=== PATIENT | female | born 1950 | race Caucasian/White ===

== ENCOUNTER → 2016-06-14 | Outpatient (CLI) | payer MEDICARE ==
[~2016-06-14] MED LIST: ACTIGALL 300MG300 MG PO; ANTIVERT 25MG25 MG PO; CALCIUM CITRAT200 MG PO; CODEINE30 MG PO; EVISTA 60MG60 MG/TAB PO; HCTZ 25MG25 MG PO; METAPROLOL; METOPROLOL25 MG PO; SYNTHROID0.1 MG/TAB PO; URSODIOL300 MG PO; VALIUM 2MG T2 MG/TAB PO; VITAMIN B11000 MCG/M IM; VITAMIN D5000 IU PO; ZOFRAN 4MG T4 MG/TAB PO
[2016-06-14 14:18] LABS: HEMOGLOBIN 13.2 g/dl (12.5-16.0)
[2016-06-14 14:27] LABS: HEMATOCRIT 41.4 % (37.0-47.0)
== END ==
LOC: COL.LAB 06-07 13:01
PROVIDERS: Internal Medicine Gastroenterology
DX: Z01.89 Encounter for other specified special examinations (principal)

== ENCOUNTER → 2016-07-30 | Outpatient (CLI) | payer MEDICARE | LOC: MC.RAD 13:45 | DX: Z12.31 Encounter for screening mammogram for malignant neoplasm of breast (principal) ==

== ENCOUNTER → 2016-08-02 | Outpatient (CLI) | payer MEDICARE ==
[2016-08-02 14:43] LABS: BASO # 0.1 (0.0-0.2); BASO % 0.8 % (0.0-2.0); EOS # 0.1 (0.0-0.7); EOS % 1.6 % (0-4.0); GRAN # 3.7 (1.4-6.5); HEMOGLOBIN 12.8 g/dl (12.5-16.0); LYMPH # 1.6 (1.2-3.4); LYMPH % 26.4 % (20.0-51.0); MEAN CELL VOLUME 85 fl (80.0-100.0); MEAN CORPUSCULAR HEMOGLOBIN 26 pg (27.0-31.0); MEAN CORPUSCULAR HGB CONC 31 g/dl (33.0-37.0); MEAN PLATELET VOLUME 11.8 fl (7.4-10.4); MONO # 0.6 (0.1-0.6); MONO % 9.9 % (1.7-9.3); PLATELET COUNT 178 K/mm3 (130-400); RED BLOOD COUNT 4.86 M/mm3 (4.10-5.30); REDCELL DISTRIBUTION WIDTH-CV 18.3 % (11.5-14.5); WHITE BLOOD COUNT 6.1 K/mm3 (4.8-10.8)
[2016-08-02 14:50] LABS: PROTHROMBIN TIME 11.5 SECONDS (9.7-12.8)
[2016-08-02 15:02] LABS: HEMATOCRIT 41.1 % (37.0-47.0)
[2016-08-02 15:38] LABS: TOTAL IRON BINDING CAPACITY 377 ug/dL (265-497)
[2016-08-02 16:04] LABS: FERRITIN 12 ng/mL (11-264)
== END ==
LOC: COL.LAB 13:46
PROVIDERS: Internal Medicine Gastroenterology
DX: Z01.89 Encounter for other specified special examinations (principal)

== ENCOUNTER → 2016-11-22 | Outpatient (CLI) | payer MEDICARE ==
[2016-09-13 10:32] LABS: HEMOGLOBIN 11.9 g/dl (12.5-16.0)
[2016-09-13 10:39] LABS: HEMATOCRIT 38.2 % (37.0-47.0)
[2016-11-22 11:31] LABS: HEMOGLOBIN 13.2 g/dl (12.5-16.0)
[2016-11-22 11:34] LABS: HEMATOCRIT 40.9 % (37.0-47.0)
== END ==
LOC: COL.LAB 09-13 10:06
PROVIDERS: Internal Medicine Gastroenterology
DX: Z01.89 Encounter for other specified special examinations (principal)

== ENCOUNTER → 2017-01-01 | Outpatient (CLI) | payer MEDICARE ==
[2017-01-01 12:04] LABS: HEMATOCRIT 40.7 % (37.0-47.0)
== END ==
LOC: COL.LAB 09:04
PROVIDERS: Internal Medicine Gastroenterology
DX: Z01.89 Encounter for other specified special examinations (principal)

== ENCOUNTER → 2017-04-10 | Outpatient (CLI) | payer MEDICARE ==
[2017-04-10 10:35] LABS: HEMOGLOBIN 13.9 g/dl (12.5-16.0)
[2017-04-10 10:37] LABS: HEMATOCRIT 43.6 % (37.0-47.0)
== END ==
LOC: COL.LAB 09:51
PROVIDERS: Internal Medicine Gastroenterology
DX: Z01.89 Encounter for other specified special examinations (principal)

== ENCOUNTER → 2017-05-06 | Outpatient (CLI) | payer MEDICARE | LOC: COL.RAD 10:12 | DX: R10.2 Pelvic and perineal pain (principal) ==

== ENCOUNTER → 2017-06-05 | Outpatient (CLI) | payer MEDICARE ==
[2017-06-05 10:21] LABS: HEMOGLOBIN 14.2 g/dl (12.5-16.0)
[2017-06-05 10:24] LABS: HEMATOCRIT 44.9 % (37.0-47.0)
== END ==
LOC: COL.LAB 09:50
PROVIDERS: Internal Medicine Gastroenterology
DX: Z01.89 Encounter for other specified special examinations (principal)

== ENCOUNTER → 2017-07-17 | Outpatient (CLI) | payer MEDICARE ==
[2017-07-17 10:24] LABS: BASO # 0.1 (0.0-0.2); BASO % 1.2 % (0.0-2.0); EOS # 0.1 (0.0-0.7); EOS % 1.9 % (0-4.0); GRAN # 4.1 (1.4-6.5); HEMOGLOBIN 13.5 g/dl (12.5-16.0); LYMPH # 1.4 (1.2-3.4); LYMPH % 22.2 % (20.0-51.0); MEAN CELL VOLUME 88 fl (80.0-100.0); MEAN CORPUSCULAR HEMOGLOBIN 28 pg (27.0-31.0); MEAN CORPUSCULAR HGB CONC 32 g/dl (33.0-37.0); MEAN PLATELET VOLUME 11.6 fl (7.4-10.4); MONO # 0.7 (0.1-0.6); MONO % 11.4 % (1.7-9.3); PLATELET COUNT 190 K/mm3 (130-400); RED BLOOD COUNT 4.84 M/mm3 (4.10-5.30); REDCELL DISTRIBUTION WIDTH-CV 15.7 % (11.5-14.5)
[2017-07-17 10:27] LABS: HEMATOCRIT 42.8 % (37.0-47.0)
[2017-07-17 10:29] LABS: INR 1.1 (0.8-3.0)
[2017-07-17 10:40] LABS: IRON,SERUM 131 ug/dL (35-150)
[2017-07-17 10:49] LABS: TOTAL IRON BINDING CAPACITY 416 ug/dL (265-497)
[2017-07-17 11:16] LABS: FERRITIN 13 ng/mL (11-264)
== END ==
LOC: COL.LAB 09:50
PROVIDERS: Internal Medicine Gastroenterology
DX: Z01.89 Encounter for other specified special examinations (principal)

== ENCOUNTER → 2017-08-21 | Outpatient (CLI) | payer MEDICARE ==
[2017-08-21 14:46] LABS: HEMOGLOBIN 14.2 g/dl (12.5-16.0)
[2017-08-21 14:47] LABS: HEMATOCRIT 43.6 % (37.0-47.0)
== END ==
LOC: COL.LAB 09:44
PROVIDERS: Internal Medicine Gastroenterology
DX: Z01.89 Encounter for other specified special examinations (principal)

== ENCOUNTER → 2017-09-19 | Outpatient (CLI) | payer MEDICARE | LOC: MC.RAD 10:17 | DX: N63.13 Unspecified lump in the right breast, lower outer quadrant (principal) ==

== ENCOUNTER → 2017-10-02 | Outpatient (CLI) | payer MEDICARE ==
[2017-10-02 10:29] LABS: HEMOGLOBIN 13.5 g/dl (12.5-16.0)
== END ==
LOC: COL.LAB 09:45
PROVIDERS: Internal Medicine Gastroenterology
DX: Z01.89 Encounter for other specified special examinations (principal)

== ENCOUNTER → 2017-11-13 | Outpatient (CLI) | payer MEDICARE ==
[2017-11-13 10:42] LABS: HEMOGLOBIN 13.7 g/dl (12.5-16.0)
[2017-11-13 10:43] LABS: HEMATOCRIT 41.3 % (37.0-47.0)
== END ==
LOC: COL.LAB 09:47
PROVIDERS: Internal Medicine Gastroenterology
DX: Z01.89 Encounter for other specified special examinations (principal)

== ENCOUNTER → 2017-12-25 | Outpatient (CLI) | payer MEDICARE ==
[2017-12-25 08:47] LABS: HEMOGLOBIN 13.8 g/dl (12.5-16.0)
[2017-12-25 08:52] LABS: HEMATOCRIT 42.5 % (37.0-47.0)
== END ==
LOC: COL.LAB 07:47
PROVIDERS: Internal Medicine Gastroenterology
DX: E83.119 Hemochromatosis, unspecified (principal)

== ENCOUNTER → 2018-01-29 | Outpatient (CLI) | payer MEDICARE ==
[2018-01-29 08:41] LABS: HEMOGLOBIN 13.4 g/dl (12.5-16.0)
[2018-01-29 08:43] LABS: HEMATOCRIT 41.3 % (37.0-47.0)
== END ==
LOC: COL.LAB 08:04
PROVIDERS: Internal Medicine Gastroenterology
DX: E83.119 Hemochromatosis, unspecified (principal)

== ENCOUNTER → 2018-10-09 | Outpatient (CLI) | payer MEDICARE | LOC: MC.RAD 08:07 | DX: Z12.31 Encounter for screening mammogram for malignant neoplasm of breast (principal) ==

== ENCOUNTER → 2019-12-22 | Outpatient (CLI) | payer MEDICARE | LOC: MC.RAD 07:55 | DX: Z12.31 Encounter for screening mammogram for malignant neoplasm of breast (principal); Z98.82 Breast implant status ==

== ENCOUNTER → 2021-01-02 | Outpatient (CLI) | payer MEDICARE | LOC: MC.RAD 08:08 | DX: Z12.31 Encounter for screening mammogram for malignant neoplasm of breast (principal) ==

== ENCOUNTER 2021-12-22 12:55 | Outpatient (CLI) | payer MEDICARE ==
[~2021-12-22] VITALS: Ht 154.9 cm; Wt 67.9 kg
[2021-12-22 13:36] VITALS: BP 113/62; PULSE 63; TEMP 98.3
[2021-12-22] MEDS ORDERED: LIPITOR 40MG TA40 MG PO (13:45)
[2021-12-22] MEDS ORDERED: HCTZ 25MG TAB25 MG PO (13:49)
[2021-12-22] MEDS ORDERED: TOPROL XL 25MG25 MG PO (13:49)
[2021-12-22] MEDS ORDERED: VITAMIN D250 MCG PO (13:51)
== END 2021-12-22 14:45 | disposition home or self-care (01) ==
LOC: EUO 12:55
DX: M81.0 Age-related osteoporosis without current pathological fracture (principal)
CPT/HCPCS: J3489

== ENCOUNTER → 2022-02-06 | Outpatient (CLI) | payer MEDICARE ==
[~2022-02-06] MED LIST changes: +HCTZ 25MG TAB25 MG PO; +LIPITOR 40MG TA40 MG PO; +TOPROL XL 25MG25 MG PO; +VITAMIN D250 MCG PO
== END ==
LOC: MC.RAD 08:36
DX: Z12.31 Encounter for screening mammogram for malignant neoplasm of breast (principal)

== ENCOUNTER → 2023-03-19 | Outpatient (CLI) | payer MEDICARE ==
[~2023-03-19] MED LIST changes: +RECLAST5 MG/100 M IV
== END ==
LOC: MC.RAD 10:54
DX: Z12.31 Encounter for screening mammogram for malignant neoplasm of breast (principal)

== ENCOUNTER → 2024-03-20 | Outpatient (CLI) | payer MEDICARE | LOC: MC.RAD 08:18 | DX: Z12.31 Encounter for screening mammogram for malignant neoplasm of breast (principal) ==